=== PATIENT | female | born 1985 | race Hispanic/Latino ===

== ENCOUNTER 2019-07-26 11:39 | Day surgery (SDC) | payer OTHER ==
[2019-07-26 12:14] VITALS: BMI 38.7
[2019-07-26] MEDS ORDERED: FLU VACC QS2019-20(6MOS UP)/PF 60 MCG/0.5 ML SYRINGE IM ONE (12:45)
[2019-07-26 13:36] LABS: #Eosinphils 0.1 thou/uL (0.0-0.7); #Lymphocytes 1.9 thou/uL (1.20-3.40); #Monocytes 0.6 thou/uL (0.11-0.59); %Basophils 0.2 % (0.0-1.0); %Eosinophils 0.6 % (0.0-10.0); %Lymphocytes 16.7 % (21.0-51.0); %Monocytes 4.7 % (0.0-10.0); %Neutrophils 77.7 % (42.0-75.0); Hemoglobin 11.7 g/dL (12.0-16.0); Mean Corpuscular HGB CONC 34.7 g/dL (32.0-36.0); Mean Corpuscular Hemoglobin 29.1 pg (27.0-31.0); Mean Corpuscular Volume 83.9 fL (78.0-98.0); Mean Platelet Volume 9.2 fL (7.4-10.4); Platelet Count 208 thou/uL (130-400); RBC Distribution Width 12.2 % (11.5-14.5); Red Blood Cell (RBC) Count 4.01 mill/uL (4.20-5.40); White Blood Cell (WBC) Count 11.5 thou/uL (4.8-10.8)
[2019-07-26 13:46] LABS: Creatinine, Urine 28.09 mg/dL (47-110); Protein, Urine Random Quant Less than 10 mg/dL (1-14)
[2019-07-26 13:58] LABS: ALT (SGPT) 24 U/L (8-55); AST (SGOT) 24 U/L (5-34); Albumin 3.2 g/dL (3.5-5.0); Alkaline Phosphatase 140 U/L (40-110); Anion Gap 9 mmol/L (10-20); BUN (Urea Nitrogen) 9 mg/dL (7.0-18.7); Bilirubin, Total 0.4 mg/dL (0.2-1.2); Calc. Creatinine Clearance 220 mL/min (70-130); Calcium 8.9 mg/dL (7.8-10.44); Carbon Dioxide 26 mmol/L (22-29); Chloride 106 mmol/L (98-107); Estimated GFR-MDRD Greater than 90; Globulin 3.2 g/dL (2.4-3.5); Glucose 70 mg/dL (70-105); Potassium 3.9 mmol/L (3.5-5.1); Protein, Total 6.4 g/dL (6.0-8.3); Sodium 137 mmol/L (136-145)
--- NOTE | 2019-07-26 14:43 | PDOC.FPROB ---
FMR OB H&P: HPI - History of Present Illness Chief Complaint: pre-e r/o, sent from clinic History of Present Illness: 34yo at 37.3w EGA by LMP and 9.3w US presenting for Pre-E r/o. Pt reports her LE edema has increased over the last few weeks. She also complains of intermittent mild blurring of vision over the last week. currently asymptomatic. Denies LOF/bleeding/contractions, endorses good mvmt. FMR OB H&P: Current - Care Due date: 08/13/2019 Dating Criteria: LMP and 9.3w US Course/Complications: reports 10lb weight gain in last week - OB Labs Blood type: O RH: positive Antibody Screen: negative HIV: negative RPR: negative HepBsAg: negative Rubella: immune Quad screen: negative Gonorrhea: negative Chlamydia: negative 1 hour gtt: 110, 2hr 101 FMR OB H&P: History - Past Medical History PMH: none - OB History OB History: hx of 2 prior C/S. First was 2/2 oligohydramnios and distress - Surgical History Sx History: x2 - Social History Social History: Denies current TAD. former smoker prior to . - Family History Family History: non contributory FMR OB H&P: Medications - Current Home Medications: Medication Instructions Recorded Confirmed Type Pnv73/Iron,Gluc/Folic/Dss/Dha 1 tab PO DAILY 07/26/19 07/26/19 History [Citranatal Assure Combo Pack] Allergies/Adverse Reactions: Allergies Allergy/AdvReac Type Severity Reaction Status Date / Time No Known Allergies Allergy Unverified 07/26/19 12:12 FMR OB H&P: ROS - Review of Systems General: denies: fever/chills, fatigue Eyes: denies: eye pain, scotomas ENT: denies: nasal congestion, rhinorrhea Cardiovascular: denies: chest pain, palpitation Respiratory: denies: cough, shortness of breath Gastrointestinal: denies: abdominal pain, indigestion Genitourinary (Female): denies: incontinence, hematuria, polyuria, vaginal discharge, vaginal pain Musculoskeletal: reports: swelling. denies: tenderness Neurologic: denies: numbness, syncope Integumentary: denies: rash, lesions Endocrine: denies: polydipsia, polyuria Psychological: denies: depression, anxiety FMR OB H&P: Vital Signs - Maternal Vital signs: reviewed: other than BP all WNL BP: over the span of 4 hours fluctuated with SBPs 120-140s. One SBP 154 but on recheck was 138. - Heart Tones Baseline: 150 Variability: moderate FMR OB H&P: Physical Exam - Physical Exam General: NAD, awake, alert and oriented HEENT: EOMI, MMM, no scleral icterus Neck: trachea midline Chest: non-tender to palpation Breast: symmetric Heart: RRR, normal S1/S2 General: CTAB, no respiratory distress Abdomen: soft, gravid Musculoskeletal: normal gait and station, pulses present Skin: no rash, good tugor Lymphatic: no unusual bruising or bleeding, no purpura Psychiatric: intact recent and remote memory, good judgement and insight FMR OB H&P: Results - Labs Lab results: Laboratory Results - last 24 hr 07/26/19 07/26/19 07/26/19 13:02 13:10 13:10 WBC 11.5 H RBC 4.01 L Hgb 11.7 L Hct 33.6 L MCV 83.9 MCH 29.1 MCHC 34.7 RDW 12.2 Plt Count 208 MPV 9.2 Neutrophils % 77.7 H Lymphocytes % 16.7 L Monocytes % 4.7 Eosinophils % 0.6 Basophils % 0.2 Neutrophils # 9.0 H Lymphocytes # 1.9 Monocytes # 0.6 H Eosinophils # 0.1 Basophils # 0.0 Sodium 137 Potassium 3.9 Chloride 106 Carbon Dioxide 26 Anion Gap 9 L BUN 9 Creatinine 0.59 L Estimated GFR (MDRD) Greater than 90 Glucose 70 Calcium 8.9 Total Bilirubin 0.4 AST 24 ALT 24 Alkaline Phosphatase 140 H Serum Total Protein 6.4 Albumin 3.2 L Globulin 3.2 Albumin/Globulin Ratio 1.0 L U Random Total Protein Less than 10 Urine Creatinine 28.09 L FMR OB H&P: A/P - Problem List (1) Status: Acute (2) Elevated blood pressure affecting in third trimester, antepartum Status: Acute Code(s): O16.3 - UNSPECIFIED MATERNAL HYPERTENSION, THIRD TRIMESTER Discussion: Date/Time: 07/26/19 1443 tIUP with elevated BPs A- Observed on L&D for 4 hours for BP monitoring and labwork. Pre-E workup was all normal. There were some elevated BPs during course but none being over SBP 140 AND 4hrs apart. Pt likely will meet criteria for gHTN. P- She is safe for DC home with plans to check BPs at home and f/u within week at PCP Addendum - Attending - Attending Attestation Date/Time: 07/26/19 9891 I personally evaluated the patient and discussed the management with Dr. Camarena I agree with the History, Examination, Assessment and Plan documented above with any addition or exceptions noted below. Labs unremarkable with exception of uric acid of 5.2. Arranged outpatient BP monitoring with P[facility]. 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 Discussed severe sx with patient and . they expressed understanding. all questions answered.
== END 2019-07-26 16:04 | disposition home or self-care (01) ==
LOC: L&D/OP 11:39
PROVIDERS: ATTEND Family Medicine
DX: O99.89 Other specified diseases and conditions complicating pregnancy, childbirth and the puerperium (principal); R60.0 Localized edema; O16.3 Unspecified maternal hypertension, third trimester; Z87.891 Personal history of nicotine dependence; Z3A.37 37 weeks gestation of pregnancy
CPT/HCPCS: 36415; 80053; 82570; 84156; 84550; 85025; 99283

== ENCOUNTER 2019-07-29 10:56 | Inpatient (IN) | payer MEDICAID, OTHER, SELFPAY ==
[2019-07-29] MEDS ORDERED: hydrALAZINE 20 MG/ML VIAL SLOW IVP PRN ×2 (11:41→14:18)
[2019-07-29 11:43] VITALS: BMI 38.7
--- NOTE | 2019-07-29 11:46 | PDOC.FPROB ---
FMR OB H&P: HPI - History of Present Illness Chief Complaint: elevated bp History of Present Illness: 34 yo @37.6wks by LMP/1T susan presents for elevated bp's at home. Yesterday she noted a 140/90 BP and this am had a197/111 bp. She endorses a headache this morning that is in the front, bilateral and is a 2-3/10 on the pain scale. Yesterday endorses some changes in vision, none today. Endorses LE swelling, b/l since yesterday. Of note, this was documented on the last visit. Denies contractions, LOF, FMR OB H&P: Current - Care : 3 Para: 2 Gestational age: 37.6 FMR OB H&P: History - Past Medical History PMH: none - OB History OB History: two prior CS anterior placenta approved for RRS - Surgical History Sx History: Two prior CS, in [place], skin is pfannenstiel - Social History Social History: denies smoking, alcohol, drug use - Family History Family History: maternal grandmother-htn FMR OB H&P: Medications - Current Home Medications: Medication Instructions Recorded Confirmed Type Pnv73/Iron,Gluc/Folic/Dss/Dha 1 tab PO DAILY 07/26/19 07/29/19 History [Citranatal Assure Combo Pack] Allergies/Adverse Reactions: Allergies Allergy/AdvReac Type Severity Reaction Status Date / Time No Known Allergies Allergy Unverified 07/26/19 12:12 FMR OB H&P: ROS - Review of Systems General: denies: fever/chills, weight/appetite/sleep changes Eyes: reports: vision changes, floaters ENT: denies: nasal congestion, rhinorrhea Cardiovascular: reports: edema. denies: chest pain Respiratory: reports: shortness of breath. denies: cough Gastrointestinal: denies: abdominal pain, bloating, cramping, nausea, vomiting, diarrhea Genitourinary (Female): denies: incontinence, dysuria Musculoskeletal: denies: pain, stiffness Neurologic: denies: numbness, syncope Integumentary: denies: itching, rash Endocrine: denies: polydipsia, polyuria FMR OB H&P: Vital Signs - Maternal Vital signs: Vital Signs - First Documented Temp Pulse Resp BP 98.7 F 75 18 136/94 H 07/29/19 11:23 07/29/19 11:23 07/29/19 11:23 07/29/19 11:23 - Heart Tones Baseline: 130 Variability: moderate Deceleration: absent FMR OB H&P: Physical Exam - Physical Exam General: NAD, awake, alert and oriented HEENT: normocephalic and atraumatic, PERRLA Heart: RRR, normal S1/S2, no murmurs/rubs/gallops, other (edema 1+ pitting edema to mid mari) General: CTAB, no respiratory distress Abdomen: soft, gravid, non-tender Skin: no rash, capillary refill <2 seconds Lymphatic: no unusual bruising or bleeding, no purpura FMR OB H&P: A/P - Problem List (1) Third trimester Current Visit: Yes Status: Acute Code(s): Z34.93 - ENCNTR FOR SUPRVSN OF NORMAL PREG, UNSP, THIRD TRIMESTER (2) History of delivery Current Visit: Yes Status: Acute Code(s): Z98.891 - HISTORY OF UTERINE SCAR FROM PREVIOUS SURGERY (3) Elevated blood pressure affecting in third trimester, antepartum Current Visit: No Status: Acute Code(s): O16.3 - UNSPECIFIED MATERNAL HYPERTENSION, THIRD TRIMESTER (4) Current Visit: No Status: Acute Discussion: Date/Time: 07/29/19 1143 A: 34 yo @37.6wks by LMP/1T sono here for elevated bps, headache, and vision changes since yesterday. -sIUP, third trimester -elevated bp without diagnosis of PIH -hx of two prior CS -RRS approved Plan: -will monitor bp and FHTs via NST -ordered urine protein/cr, cbc, and cmp -pt scheduled for repeat CS on 08/08 currently Halina Solitario MD, PGY-3 Addendum - Attending - Attending Attestation Date/Time: 07/29/19 9349 I personally evaluated the patient and discussed the management with Dr. Luevano. I agree with the History, Examination, Assessment and Plan documented above.
[2019-07-29 12:13] LABS: #Eosinphils 0.1 thou/uL (0.0-0.7); #Lymphocytes 1.5 thou/uL (1.20-3.40); #Monocytes 0.6 thou/uL (0.11-0.59); #Neutrophils 11.4 thou/uL (1.40-6.50); %Basophils 0.3 % (0.0-1.0); %Eosinophils 0.8 % (0.0-10.0); %Lymphocytes 11.2 % (21.0-51.0); %Monocytes 4.4 % (0.0-10.0); %Neutrophils 83.3 % (42.0-75.0); Hemoglobin 12.5 g/dL (12.0-16.0); Mean Corpuscular HGB CONC 34.4 g/dL (32.0-36.0); Mean Corpuscular Hemoglobin 28.9 pg (27.0-31.0); Mean Corpuscular Volume 83.9 fL (78.0-98.0); Mean Platelet Volume 9.4 fL (7.4-10.4); Platelet Count 221 thou/uL (130-400); RBC Distribution Width 12.3 % (11.5-14.5); Red Blood Cell (RBC) Count 4.35 mill/uL (4.20-5.40); White Blood Cell (WBC) Count 13.7 thou/uL (4.8-10.8)
[2019-07-29 12:34] LABS: ALT (SGPT) 24 U/L (8-55); AST (SGOT) 25 U/L (5-34); Albumin 3.2 g/dL (3.5-5.0); Alkaline Phosphatase 143 U/L (40-110); Anion Gap 8 mmol/L (10-20); BUN (Urea Nitrogen) 11 mg/dL (7.0-18.7); Bilirubin, Total 0.2 mg/dL (0.2-1.2); Calc. Creatinine Clearance 228 mL/min (70-130); Calcium 8.7 mg/dL (7.8-10.44); Carbon Dioxide 25 mmol/L (22-29); Chloride 107 mmol/L (98-107); Estimated GFR-MDRD Greater than 90; Globulin 3.3 g/dL (2.4-3.5); Glucose 81 mg/dL (70-105); Potassium 4.3 mmol/L (3.5-5.1); Protein, Total 6.5 g/dL (6.0-8.3); Sodium 136 mmol/L (136-145)
[2019-07-29 12:38] LABS: Creatinine, Urine 54.22 mg/dL (47-110)
[2019-07-29] MEDS ORDERED: Calcium Gluc 4.6 MEQ/10 ML (100 MG/ML) SLOW IVP PRN ×2 (14:18→17:59)
[2019-07-29] MEDS ORDERED: Promethazine HCl 25 MG/ML VIAL IM PRN ×2 (14:18→18:41)
[2019-07-29] MEDS ORDERED: Ondansetron PF 4 MG/2 ML Vial IVP PRN ×2 (14:18→18:41)
[2019-07-29 15:00] LABS: Mean Corpuscular HGB CONC 34.8 g/dL (32.0-36.0); Mean Corpuscular Hemoglobin 29.4 pg (27.0-31.0); Mean Corpuscular Volume 84.2 fL (78.0-98.0); Mean Platelet Volume 9.9 fL (7.4-10.4); Platelet Count 215 thou/uL (130-400); RBC Distribution Width 12.4 % (11.5-14.5); Red Blood Cell (RBC) Count 4.42 mill/uL (4.20-5.40); White Blood Cell (WBC) Count 14.3 thou/uL (4.8-10.8)
[2019-07-29 15:40] LABS: Syphilis Antibody Nonreactive (Nonreactive); Syphilis Antibody Index 0.04 S/CO (<1.00 Non-Reactive)
[2019-07-29 15:41] LABS: HBSAg Index 0.22 S/CO (0-0.99); Hep B Surf Ag Non-Reactive S/CO (NonReactive)
--- NOTE | 2019-07-29 16:09 | PDOC.EVN ---
Event Note - Event Note Event Note: Protein/Cr .45, labs otherwise wnl. BPs 130-140s/90s; one severe range after discussing admission for preE to observe overnight (165/102). Will monitor bps overnight. Addendum - Attending - Attending Attestation Date/Time: 07/29/19 5630 I personally evaluated the patient and discussed the management with Dr. Luevano. This pt. sees Dr. Ashby and [facility] at [facility], Dr. Larkin has agreed to assume care. Dr. Ashby has been notified. I agree with the History, Examination, Assessment and Plan documented above.
[2019-07-29] MEDS ORDERED: CEFAZOLIN 2 GM in Premix Bag 1 BAG IVPB SCH (18:00)
[2019-07-29] MEDS ORDERED: Bicitra 30 ML UDCUP PO SCH (18:00)
[2019-07-29] MEDS ORDERED: Magnesium Sulfate 20 GM/WATER 500 ML BAG IVPB SCH (18:00)
[2019-07-29] MEDS ORDERED: Magnesium Sulfate 20 gm/500 ml 20 GM/500 ML BAG ONE (18:01)
[2019-07-29] MEDS: Magnesium Sulfate 20 gm/500 ml 20 GM/500 ML BAG IVPB SCH (18:12)
[2019-07-29] MEDS: Lactated Ringer's 1,000 ML IV SCH ×2 (18:20→22:50)
[2019-07-29] MEDS ORDERED: Fentanyl 100 MCG/2 ML VIAL ONE (18:35)
[2019-07-29] MEDS ORDERED: MORPHINE 5 MG/10 ML PF VIAL ONE (18:35)
[2019-07-29] MEDS ORDERED: Oxytocin 10 UNITS/ML VIAL ONE (18:36)
[2019-07-29] MEDS ORDERED: PHENYLEPHRINE-NS 100 MCG/ML 10 ML SYRINGE ONE (18:36)
[2019-07-29] MEDS ORDERED: Ketorolac Tromethamine 30 MG/ML VIAL ONE (18:36)
[2019-07-29] MEDS ORDERED: Ondansetron PF 4 MG/2 ML Vial ONE (18:36)
[2019-07-29] MEDS ORDERED: Naloxone HCl 0.4 mg/ml Vial IVP PRN ×2 (18:41)
[2019-07-29] MEDS ORDERED: Ondansetron HCl/PF 4 MG/2 ML Vial IVP PRN (18:41)
[2019-07-29] MEDS ORDERED: diphenhydrAMINE 50 MG/ML VIAL IVP PRN (18:41)
[2019-07-29] MEDS ORDERED: Promethazine HCl 25 MG SUPP PR PRN (18:41)
[2019-07-29] MEDS ORDERED: Acetaminophen 1,000 MG in Premix Bag 1 BAG IVPB PRN (18:41)
[2019-07-29] MEDS ORDERED: Naloxone HCl 0.4 mg/ml Vial IV PRN (18:41)
[2019-07-29] MEDS ORDERED: Dexamethasone 4 mg/ml Vial ONE (18:42)
[2019-07-29] MEDS ORDERED: Communication Order-Pharmacy FS SCH (18:45)
[2019-07-29] MEDS ORDERED: Methylergonovine 0.2 MG/ML VIAL ONE (19:14)
[2019-07-29] MEDS ORDERED: Carboprost 250 MCG/ML AMP ONE (19:14)
--- NOTE | 2019-07-29 20:47 | PDOC.OPDEL ---
OB Operative/Delivery Note Delivery Dr/Surgeon: Ann-Marie Solitario Assist: Attending: Dr. Ashby Pre-Delivery Diagnosis: other (PreEclampsia with severe range blood pressures) Weeks gestation: 37 (37.6) Anesthesia: spinal - Findings A Sex: female - 1 min: 9 - 5 min: 9 - Additional Findings/Plan Placenta delivered: spontaneous findings: low transverse hysterotomy with extension (right) Estimated blood loss: 750 Compilations/Other Findings: Resident Surgeon: Ann-Marie Parole Supervisor Surgeon: Kassi Attending Surgeon: Isma Procedure: Repeat low transverse caesarean section Preoperative Diagnosis: 1)Term intrauterine 2)Previous x2 3)Preeclampsia with severe range blood pressures Postoperative Diagnosis 1)Term intrauterine , delivered 2)Previous x2 3)Preeclampsia with severe range blood pressures 4)S/p RRS Anesthesia: spinal Indications: The patient is a 34 year old female at 37.6weeks gestation who presents for a repeat 2/2 preE with severe range blood pressures. Procedure in Detail: After risks, benefits, and alternatives were explained to the patient, she gave informed consent. Pre-operative antibiotics included Cefazolin 2 gram IV. The patient was taken to the operating room and spinal anesthesia was initiated. She was placed in the supine position with a left tilt and prepped and draped in usual sterile fashion. A Pfannenstiel incision was made with a scalpel and carried down to the level of the fascia which was sharply nicked. The fascial cut was extended bilaterally with Schwab sissors. The inferior and superior edges of the cut fascial edges were elevated with Billy clamps and the underlying rectus muscles were sharply and bluntly dissected free. The recti were divided digitally and retracted manually. The peritoneum was entered bluntly and retracted manually. Manuel-O retractor was placed. A low transverse score was made with the scalpel and the uterus was entered in the midline with the scalpel. Clear fluid was seen. The hysterotomy was extended manually. The infant was noted to be vertex and was easily delivered by fundal pressure. Mouth and nares were bulb suctioned. Cord clamped and cut and grossly normal female infant was handed to waiting nurse. Cord blood was obtained. Placenta was spontaneously extracted, found to be intact with 3 vessel cord and discarded. The Manuel-O retractor was removed. The uterus was externalized and the endometrium was curetted with a dry lap. The bladder blade was replaced and the uterus was closed with a running locking #1 Monocryl, first with closing an extension coming from the right lower uterine aspect of the hysterotomy, followed by a running, locking stitch using #1 Monocryl. Following this hemostasis was noted. Following this, Dr. Royal performed a risk reducing salpingectomy in the usual fashion, with good hemostasis. The abdomen was suctioned free of clots. The uterus was internalized and the hysterotomy was again noted to be hemostatic. The fascia was closed with a running non-locking 0-Vicryl suture. The subcutaneous tissue was irrigated and there were few bleeders, bovied and found to be hemostatic afterwards. The skin was approximated with a 4-0 Monocryl suture in the usual subcuticular fashion and dermabond applied. All counts were correct. The patient tolerated the procedure well and was taken to the recovery room in stable condition. QBL: 690 ml Complications: None Specimens: Cord blood sent to lab for blood type Findings: Grossly normal female with Apgars of 9 & 9. Grossly normal placenta with 3 vessel cord discarded. Drains: Landry to gravity draining clear urine Addendum - Attending - Attending Attestation Date/Time: 07/30/19 4167 I personally supervised and assisted with the surgery.
--- NOTE | 2019-07-29 22:39 | OP ---
DATE OF PROCEDURE: 07/29/2019 PREOPERATIVE DIAGNOSIS: Family history of ovarian cancer. POSTOPERATIVE DIAGNOSIS: Family history of ovarian cancer. PROCEDURE PERFORMED: Risk reducing bilateral salpingectomies. TECHNIQUE IN DETAIL: I was called to the OR by Dr. Ashby and the resident team to perform a risk reducing salpingectomy on this patient, who just had a section. She had been consented for RRS in the Clinic. The hysterotomy had been closed and was hemostatic. Attention was turned to the right fallopian tube. Serial hemostats were placed across the mesosalpinx and the tube was excised. The pedicles were suture ligated using 2-0 chromic suture. The end of the tube was cross clamped and was excised free, and this pedicle was also suture ligated. Good hemostasis was noted across the mesosalpinx. Attention was turned to the other tube and a similar procedure was performed on this side. Good hemostasis was noted as well on this side. Both ovaries were within normal limits. The case was then turned back over the residents and Dr. Ashby for closure of the anterior abdominal wall. Job ID: [id number] [facility]
[2019-07-30] MEDS: Ketorolac Tromethamine 30 MG/ML VIAL IVP SCH ×4 (00:53→22:57)
[2019-07-30] MEDS: Magnesium Sulfate 20 gm/500 ml 20 GM/500 ML BAG IVPB SCH (01:54)
[2019-07-30] MEDS ORDERED: hydrALAZINE 20 MG/ML VIAL SLOW IVP PRN ×2 (04:46→21:11)
[2019-07-30] MEDS ORDERED: HYDROcodone/Acetaminophen 5/325 mg Tablet PO PRN ×5 (04:46→23:28)
[2019-07-30] MEDS ORDERED: Lanolin Ointment 7 GM TUBE TOP PRN (04:46)
[2019-07-30] MEDS ORDERED: NS / Oxytocin 40 units/1000ml 1,000 ML IV SCH (04:46)
[2019-07-30] MEDS ORDERED: Adacel (T-DAP) 0.5 ML SYRINGE IM ONE ×2 (04:46→21:11)
[2019-07-30] MEDS ORDERED: Simethicone Chewable 80 MG TAB PO PRN (04:46)
[2019-07-30] MEDS ORDERED: Ondansetron PF 4 MG/2 ML Vial IVP PRN (04:46)
[2019-07-30] MEDS ORDERED: Calcium Gluconate 4.6 MEQ in Sodium Chloride 0.9% 100 ML IVPB PRN (04:46)
[2019-07-30] MEDS ORDERED: diphenhydrAMINE 25 MG CAP PO PRN (04:46)
[2019-07-30 04:50] LABS: ALT (SGPT) 23 U/L (8-55); AST (SGOT) 28 U/L (5-34); Albumin 2.8 g/dL (3.5-5.0); Alkaline Phosphatase 125 U/L (40-110); Anion Gap 13 mmol/L (10-20); BUN (Urea Nitrogen) 10 mg/dL (7.0-18.7); Bilirubin, Total 0.3 mg/dL (0.2-1.2); Calc. Creatinine Clearance 220 mL/min (70-130); Calcium 7.7 mg/dL (7.8-10.44); Carbon Dioxide 23 mmol/L (22-29); Chloride 101 mmol/L (98-107); Estimated GFR-MDRD Greater than 90; Globulin 3.1 g/dL (2.4-3.5); Glucose 106 mg/dL (70-105); Potassium 4.4 mmol/L (3.5-5.1); Protein, Total 5.9 g/dL (6.0-8.3); Sodium 133 mmol/L (136-145)
[2019-07-30] MEDS ORDERED: Magnesium Sulfate 20 gm/500 ml 20 GM/500 ML BAG IVPB SCH (05:00)
[2019-07-30] MEDS ORDERED: Ferrous Sulfate 325 MG TAB PO SCH ×2 (05:00→17:00)
[2019-07-30 05:46] LABS: Band 14 % (5-11); Hemoglobin 11.4 g/dL (12.0-16.0); Lymphocytes 7 % (21-51); MDiff Complete? YES; Mean Corpuscular Hemoglobin 29.3 pg (27.0-31.0); Mean Corpuscular Volume 83.6 fL (78.0-98.0); Mean Platelet Volume 9.6 fL (7.4-10.4); Monocytes 1 % (0-10); Neutrophil 78 % (42-75); Platelet Count 217 thou/uL (130-400); RBC Distribution Width 12.1 % (11.5-14.5); White Blood Cell (WBC) Count 21.1 thou/uL (4.8-10.8)
--- NOTE | 2019-07-30 07:47 | PDOC.PP ---
Post Progress Note Post Day #: 1 Subjective: 34 yo f s/p repeat LTCS pod #1. Indication: preE with severe range blood pressures Doing well. BPs controlled overnight. No severe range. On magnesium Denies sx of mag tox this am. PO intake tolerated: yes Flatus: yes Ambulation: yes Weight Weight 102.965 kg - Physical Examination General: NAD Cardiovascular: no m/r/g, RRR Respiratory: clear to auscultation bilaterally, non-labored breathing Abdominal: appropriately TTP Skin: CS incision dry & intact Psychiatric: A&Ox3, normal affect Result Diagrams: 07/31/19 04:21 07/30/19 19:01 Additional Labs: Post Labs Blood Type O POSITIVE 07/29/19 15:19 Hep Bs Antigen Non-Reactive S/CO (NonReactive) 07/29/19 14:48 (1) Third trimester Code(s): Z34.93 - ENCNTR FOR SUPRVSN OF NORMAL PREG, UNSP, THIRD TRIMESTER Status: Acute (2) History of delivery Code(s): Z98.891 - HISTORY OF UTERINE SCAR FROM PREVIOUS SURGERY Status: Acute (3) Elevated blood pressure affecting in third trimester, antepartum Code(s): O16.3 - UNSPECIFIED MATERNAL HYPERTENSION, THIRD TRIMESTER Status: Acute (4) Status: Acute - Assessment/Plan A: s/p rLTCS sIUP, delivered PreE with severe range blood pressures, on magnesium Plan: -continue magnesium for 24 hours pp, continue to monitor bp, continue to monitor for s/s of mag tox -okay to dc at 24 hours after delivery Halina Solitario MD, PGY-3 Addendum - Attending - Attending Attestation Date/Time: 07/31/19 5759 I personally evaluated the patient and discussed the management with Dr. Solitario I agree with the History, Examination, Assessment and Plan documented above with any addition or exceptions noted below. Mag for 24 hr pp then transition to floor. Monitor for 24 hr off mg then D/C. Case proctored by Dr. Marisa Bustamante.
[2019-07-30] MEDS ORDERED: Prenatal Vitamin 1 TAB PO SCH (09:00)
--- NOTE | 2019-07-30 12:26 | PDOC.BPN ---
- Brief Progress Note Mag Check Patient states she is feeling well, no complaints. Denies headache, SOB, vision changes, vaginal bleeding, nausea, vomiting, abdominal pain. Vitals: BP 120/66 no severe range pressures in past 4 hours, BP range 120-137/66-71 Urine Output: 175ml/her General appearance: appears well Heart: RRR, no murmur Lung: CTA bilaterally Abdomen: nontender, BS present Extremities: no edema, DTRs 2+, no clonus present A/P: 34yo G3 now P2 s.p rLTCs @ 1931 on 07/29 on MgSO4 for Pre-Eclampsia. No signs/symptoms of Mag toxicity. Plan for next Mag check in 4 hours.
--- NOTE | 2019-07-30 16:36 | PDOC.BPN ---
<Aram Cornejo P - Last Filed: 07/30/19 16:33> - Brief Progress Note Mag Check Patient states she is feeling well, no complaints. Denies headache, SOB, vision changes, vaginal bleeding, nausea, vomiting, abdominal pain. Vitals: BP 122/68 no severe range pressures in past 4 hours, BP range 107-122/67-76 Urine Output: 180ml/hr General appearance: appears well Heart: RRR, no murmur Lung: CTA bilaterally Abdomen: nontender, BS present Extremities: no edema, DTRs 2+, no clonus present A/P: 34yo G3 now P2 s.p rLTCs @ 1931 on 07/29 on MgSO4 for Pre-Eclampsia. No signs/symptoms of Mag toxicity. Plan for next Mag check in 4 hours - will repeat labs at that time including CBC , CMP, and urine prot/cr <Errol Larkin W - Last Filed: 07/30/19 16:42> - Brief Progress Note Agree with Resident documentation. Will d/c mag at 1930 pending BP stay below severe range. Case proctored by Dr. Tom Bustamante.
[2019-07-30 19:13] LABS: #Lymphocytes 1.8 thou/uL (1.20-3.40); #Monocytes 0.6 thou/uL (0.11-0.59); #Neutrophils 9.2 thou/uL (1.40-6.50); %Basophils 0.3 % (0.0-1.0); %Eosinophils 0.3 % (0.0-10.0); %Lymphocytes 15.1 % (21.0-51.0); %Neutrophils 79.3 % (42.0-75.0); Hemoglobin 10.4 g/dL (12.0-16.0); Mean Corpuscular HGB CONC 34.4 g/dL (32.0-36.0); Mean Corpuscular Hemoglobin 28.7 pg (27.0-31.0); Mean Corpuscular Volume 83.5 fL (78.0-98.0); Mean Platelet Volume 8.7 fL (7.4-10.4); Platelet Count 206 thou/uL (130-400); RBC Distribution Width 12.3 % (11.5-14.5); Red Blood Cell (RBC) Count 3.62 mill/uL (4.20-5.40); White Blood Cell (WBC) Count 11.6 thou/uL (4.8-10.8)
[2019-07-30 19:34] LABS: ALT (SGPT) 26 U/L (8-55); AST (SGOT) 38 U/L (5-34); Albumin 2.9 g/dL (3.5-5.0); Alkaline Phosphatase 116 U/L (40-110); Anion Gap 8 mmol/L (10-20); BUN (Urea Nitrogen) 8 mg/dL (7.0-18.7); Bilirubin, Total 0.3 mg/dL (0.2-1.2); Calc. Creatinine Clearance 217 mL/min (70-130); Calcium 7.1 mg/dL (7.8-10.44); Carbon Dioxide 31 mmol/L (22-29); Chloride 100 mmol/L (98-107); Estimated GFR-MDRD Greater than 90; Globulin 2.9 g/dL (2.4-3.5); Glucose 78 mg/dL (70-105); Potassium 4.1 mmol/L (3.5-5.1); Protein, Total 5.8 g/dL (6.0-8.3); Sodium 135 mmol/L (136-145)
[2019-07-30] MEDS ORDERED: Benzocaine-Menthol 82.5 ML CAN TOP PRN (21:11)
[2019-07-30] MEDS ORDERED: Milk Of Magnesia 30 ML UDCUP PO PRN (21:11)
[2019-07-30] MEDS ORDERED: Bisacodyl 10 MG SUPP PR PRN (21:11)
[2019-07-30] MEDS ORDERED: Docusate Calcium (SURFAK) 240 MG CAP PO SCH (21:30)
[2019-07-31] MEDS ORDERED: Simethicone Chewable 80 MG TAB PO PRN (00:29)
[2019-07-31] MEDS: Ketorolac Tromethamine 30 MG/ML VIAL IVP SCH (04:11)
[2019-07-31 04:49] LABS: Hemoglobin 9.8 g/dL (12.0-16.0); Mean Corpuscular HGB CONC 34.3 g/dL (32.0-36.0); Mean Corpuscular Hemoglobin 28.8 pg (27.0-31.0); Mean Corpuscular Volume 84.1 fL (78.0-98.0); Mean Platelet Volume 8.7 fL (7.4-10.4); Platelet Count 204 thou/uL (130-400); RBC Distribution Width 12.4 % (11.5-14.5); Red Blood Cell (RBC) Count 3.39 mill/uL (4.20-5.40); White Blood Cell (WBC) Count 10.7 thou/uL (4.8-10.8)
[2019-07-31] MEDS ORDERED: Ibuprofen 600 MG TAB PO PRN (06:00)
[2019-07-31] MEDS ORDERED: Ibuprofen 800 MG TAB PO SCH (06:00)
--- NOTE | 2019-07-31 07:53 | PDOC.PP ---
Post Progress Note Post Day #: 2 Subjective: Mild pain. no other concerns. PO intake tolerated: yes Flatus: yes Ambulation: yes Vital Signs (12 hours) Temp Pulse Resp BP Pulse Ox 07/31/19 04:30 98.8 F 65 18 137/71 07/31/19 00:55 98.5 F 63 18 131/89 07/30/19 21:40 98.8 F 74 18 121/75 98 Weight Weight 102.965 kg - Physical Examination General: NAD Cardiovascular: no m/r/g, RRR Respiratory: clear to auscultation bilaterally, non-labored breathing Abdominal: + bowel sounds, no distention, appropriately TTP Extremities: negative homans (B) Skin: CS incision dry & intact, no rash Neurological: no gross focal deficits Psychiatric: A&Ox3, normal affect Result Diagrams: 07/31/19 04:21 07/30/19 19:01 Additional Labs: Post Labs Blood Type O POSITIVE 07/29/19 15:19 Hep Bs Antigen Non-Reactive S/CO (NonReactive) 07/29/19 14:48 (1) Third trimester Code(s): Z34.93 - ENCNTR FOR SUPRVSN OF NORMAL PREG, UNSP, THIRD TRIMESTER Status: Acute (2) History of delivery Code(s): Z98.891 - HISTORY OF UTERINE SCAR FROM PREVIOUS SURGERY Status: Acute (3) Elevated blood pressure affecting in third trimester, antepartum Code(s): O16.3 - UNSPECIFIED MATERNAL HYPERTENSION, THIRD TRIMESTER Status: Acute (4) Status: Acute - Assessment/Plan 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 Has home BP monitoring. Vitals WNL off mg. Will d/c later this afternoon at approximately 22 hrs off mg. Has f/u next wk w/ PNC for BP check.
[2019-07-31] MEDS: Ferrous Sulfate 325 MG TAB PO SCH ×2 (08:05→17:40)
[2019-07-31] MEDS ORDERED: Docusate Calcium (SURFAK) 240 MG CAP PO SCH (09:00)
[2019-07-31] MEDS ORDERED: Prenatal Vitamin 1 TAB PO SCH (09:00)
[2019-07-31] MEDS: HYDROcodone/Acetaminophen 5/325 mg Tablet PO PRN ×2 (13:23→17:40)
[2019-07-31 13:30] VITALS: BP 129/85; TEMP 98.3
--- NOTE | 2019-08-02 04:46 | PQF ---
[employer] Winform ViewerJAMES CALDERON BEN MD [id number] CLINICAL DOCUMENTATION CLARIFICATION FORM: POST DISCHARGE Addendum to original discharge summary date: ____ Late entry note date: __ DATE: 08/02/2019 ATTN:APRIL STEPHENSON MD Please exercise your independent, professional judgment in responding to the clarification form. Clinical indicators are provided on the bottom of this form for your review Please check appropriate box(s): [ XX] Acute blood loss anemia [ ] Post-op anemia related to acute blood loss [ ] Chronic Anemia [ ] Other diagnosis [ ] Unable to determine In addition, please specify: Present on Admission (POA): [ ] Yes [ ] No [ ] Unable to determine For continuity of documentation, please document condition throughout progress notes and discharge summary. Thank You. CLINICAL INDICATORS - SIGNS / SYMPTOMS / LABS HGB 12.5 on 07/29 and 9.8 on 07/31 - Documented in Laboratory HCT 36.5 on 07/29 and 28.5 on 07/31 - Documented in Laboratory Estimated Blood Loss 750 - Documented in Delivery note RISK FACTORS Severe Preeclampsia with severe range blood pressure - Documented in Delivery note Post op Complicatione none - Documented in Delivery note Risk reducing Bilateral Salphingectomy Repeat LTCs TREATMENTS: Continue monitor BP Ferrous Sulfate 325 mg - Medication report (This form is maintained as a part of the permanent medical record) 2014 [employer]. All Rights Reserved [employer] JAMES Trujillo BEN MD [id number] CLINICAL DOCUMENTATION CLARIFICATION FORM: POST DISCHARGE Addendum to original discharge summary date: ____ Late entry note date: __ DATE: 08/02/2019 ATTN:APRIL STEPHENSON MD Please exercise your independent, professional judgment in responding to the clarification form. Clinical indicators are provided on the bottom of this form for your review Please check appropriate box(s): [ ] Acute blood loss anemia [ ] Post-op anemia related to acute blood loss [ ] Chronic Anemia [ ] Other diagnosis [ ] Unable to determine In addition, please specify: Present on Admission (POA): [ ] Yes [ ] No [ ] Unable to determine For continuity of documentation, please document condition throughout progress notes and discharge summary. Thank You. CLINICAL INDICATORS - SIGNS / SYMPTOMS / LABS HGB 12.5 on 07/29 and 9.8 on 07/31 - Documented in Laboratory HCT 36.5 on 07/29 and 28.5 on 07/31 - Documented in Laboratory Estimated Blood Loss 750 - Documented in Delivery note RISK FACTORS Severe Preeclampsia with severe range blood pressure - Documented in Delivery note Post op Complication none - Documented in Delivery note Risk reducing Bilateral Salpingectomy Repeat LTCs TREATMENTS: Continue monitor BP Ferrous Sulfate 325 mg - Medication report (This form is maintained as a part of the permanent medical record) 2014 [employer]. All Rights Reserved [facility]
== END 2019-07-31 17:55 | disposition home or self-care (01) | DRG 784 ==
LOC: L&D/OP 10:56 → L&D 18:41 → 3SW 07-30 21:52
PROVIDERS: ADMIT Obstetrics & Gynecology; ATTEND Obstetrics & Gynecology
PROC: 10D00Z1 Extraction of Products of Conception, Low, Open Approach (ICD-10-PCS; principal; 2019-07-29)
PROC: 0UB70ZZ Excision of Bilateral Fallopian Tubes, Open Approach (ICD-10-PCS; 2019-07-29)
DX: O14.14 Severe pre-eclampsia complicating childbirth (principal); D62 Acute posthemorrhagic anemia; O34.211 Maternal care for low transverse scar from previous cesarean delivery; Z3A.37 37 weeks gestation of pregnancy; Z37.0 Single live birth; Z80.41 Family history of malignant neoplasm of ovary; O90.81 Anemia of the puerperium
CPT/HCPCS: 36415; 51702; 59025; 80053; 82570; 83735; 84156; 85025; 85027; 86780; 86850; 86900; 86901; 87340; 88302; 99285; J0690; J1100; J1885; J2210; J2274; J2405; J2590; J3010; J3475; J3490